=== PATIENT | female | born 1980 | race Caucasian/White ===

== ENCOUNTER → 2021-01-12 08:46 | Outpatient (CLI) | payer OTHER, SELFPAY ==
[2021-01-12 09:45] LABS: Add Manual Diff / Slide Review NO; Basophils Absolute Auto 100 /uL (0-100); Basophils Percent Auto 0.8 % (0-2); Eosinophils Absolute Auto 200 /uL (0-450); Eosinophils Percent Auto 1.7 % (2-4); Hematocrit 38.3 % (36-46); Hemoglobin 13.2 g/dL (12.0-16.0); Lymphocytes Absolute Auto 2100 /uL (1100-4500); Mean Corpuscular HGB Conc 34.5 % (30-36); Mean Corpuscular Hemoglobin 30.2 PG (26-34); Mean Corpuscular Volume 87.7 fL (80-100); Monocytes Absolute Auto 500 /uL (0-900); Monocytes Percent Auto 5.3 % (3-14); Neutrophils Absolute Auto 6800 /uL (1500-7000); Neutrophils Percent Auto 70.2 % (50-75); Platelet Count 258 X10^3/uL (150-400); Red Blood Cell Count 4.37 X10^6/uL (4.0-5.2); Red Cell Distribution Width 12.4 % (11.6-14.8); White Blood Cell Count 9.7 X10^3/uL (4.5-11.0)
[2021-01-12 10:05] LABS: Alanine Aminotransferase 20 IU/L (<35); Albumin 4.4 g/dL (3.5-5.0); Albumin Globulin Ratio 1.3 (1.0-2.8); Alkaline Phosphatase 68 U/L (38-126); Aspartate Aminotransferase 25 IU/L (14-36); BUN Creatinine Ratio 27.8 (6-22); Bilirubin Total 0.7 mg/dL (0.2-1.3); Blood Urea Nitrogen 15 mg/dL (7-17); C-Reactive Protein Quant 1.8 mg/dL (<1.0); Carbon Dioxide 24 mmol/L (22-32); Chloride 106 mmol/L (98-107); Cholesterol 179 mg/dL (140-199); Estimated Glomerular Filt Rate > 60.0 mL/min (>60); Globulin 3.3 g/dL (1.7-4.1); Glucose 98 mg/dL (70-100); HDL Cholesterol 38 mg/dL (40-60); HEMOLYSIS < 15 (0-50); LDL Cholesterol Calculated 108 mg/dL (<100); Potassium 4.3 mmol/L (3.4-5.1); Sodium 139 mmol/L (137-145); Total Protein 7.7 g/dL (6.3-8.2); Triglycerides 166 mg/dL (35-150)
[2021-01-12 10:23] LABS: Free T3, Triiodothyronine Free 2.78 pg/mL (2.77-5.27); Free T4, Direct Thyroxine 1.34 ng/dL (0.78-2.19)
[2021-01-12 10:36] LABS: Thyroid Stimulating Hormone 2.05 uIU/mL (0.47-4.68)
[2021-01-13 07:36] LABS: Thyroid Peroxidase Antibodies 12 IU/mL (0-34)
[2021-01-15 13:36] LABS: Thyroid Stimulating Immunoglob < 0.10 IU/L (0.00-0.55)
== END ==
PROVIDERS: Family Provider Ophthalmology; PCP Anesthesiology Pain Medicine; Referring Provider Naturopath; Visit Provider Naturopath
DX: Z00.00 Encounter for general adult medical examination without abnormal findings (principal); E03.9 Hypothyroidism, unspecified; H20.9 Unspecified iridocyclitis
CPT/HCPCS: 36415; 80053; 80061; 84439; 84443; 84445; 84481; 85025; 86140; 86376

== ENCOUNTER → 2021-01-29 10:46 | Outpatient (CLI) | payer OTHER, SELFPAY ==
--- NOTE | 2021-01-29 | DI.US.S_ITS ---
PROCEDURE: US EXTREMELY NONVASC UPPER RT INDICATIONS: SOFT TISSUE MASS ON COLLARBONE TECHNIQUE: Real-time scanning was performed of the patient directed area of concern involving the right supraclavicular region, with image documentation. COMPARISON: None. FINDINGS: At the patient directed area of palpable concern over the right supraclavicular region, there are no suspicious mass lesions, abnormal fluid collection, or adenopathy. Normal appearance of the skin. IMPRESSION: Unremarkable sonographic evaluation of the right supraclavicular region. No suspicious abnormalities identified. Recommend continued clinical surveillance and repeat imaging as needed. Dictated by: Saul Cr M.D. on 01/29/2021 at 16:21 Approved by: Saul Cr M.D. on 01/29/2021 at 16:22
== END ==
PROVIDERS: Family Provider Ophthalmology; PCP Naturopath; Referring Provider Naturopath; Visit Provider Naturopath
DX: R22.2 Localized swelling, mass and lump, trunk (principal)
CPT/HCPCS: 76882

== ENCOUNTER → 2023-01-24 07:52 | Outpatient (CLI) | payer OTHER, SELFPAY ==
[2023-01-24 09:01] LABS: Add Manual Diff / Slide Review NO; Basophils Absolute Auto 100 /uL (0-100); Eosinophils Absolute Auto 200 /uL (0-450); Eosinophils Percent Auto 1.7 % (2-4); Hematocrit 38.5 % (36-46); Hemoglobin 13.3 g/dL (12.0-16.0); Lymphocytes Absolute Auto 2400 /uL (1100-4500); Lymphocytes Percent Auto 25.6 % (25-40); Mean Corpuscular HGB Conc 34.7 % (30-36); Mean Corpuscular Hemoglobin 30.5 PG (26-34); Monocytes Absolute Auto 500 /uL (0-900); Monocytes Percent Auto 5.5 % (3-14); Neutrophils Absolute Auto 6100 /uL (1500-7000); Neutrophils Percent Auto 66.2 % (50-75); Platelet Count 199 X10^3/uL (150-400); Red Blood Cell Count 4.37 X10^6/uL (4.0-5.2); White Blood Cell Count 9.2 X10^3/uL (4.5-11.0)
[2023-01-24 11:48] LABS: Alanine Aminotransferase 22 IU/L (<35); Albumin 4.4 g/dL (3.5-5.0); Albumin Globulin Ratio 1.3 (1.0-2.8); Alkaline Phosphatase 70 U/L (38-126); Aspartate Aminotransferase 22 IU/L (14-36); BUN Creatinine Ratio 21.1 (6-22); Bilirubin Total 0.7 mg/dL (0.2-1.3); Blood Urea Nitrogen 12 mg/dL (7-17); C-Reactive Protein Quant 1.3 mg/dL (<1.0); Calcium 9.2 mg/dL (8.4-10.2); Carbon Dioxide 23 mmol/L (22-32); Chloride 106 mmol/L (98-107); Cholesterol 172 mg/dL (140-199); Estimated Glomerular Filt Rate > 60 mL/min (>60); Globulin 3.3 g/dL (1.7-4.1); Glucose 93 mg/dL (70-100); HDL Cholesterol 44 mg/dL (40-60); HEMOLYSIS < 15 (0-50); LDL Cholesterol Calculated 105 mg/dL (<100); Sodium 139 mmol/L (137-145); Total Protein 7.7 g/dL (6.3-8.2); Triglycerides 113 mg/dL (35-150)
== END ==
PROVIDERS: Family Provider Ophthalmology; PCP Naturopath; Referring Provider Naturopath; Visit Provider Naturopath
DX: Z00.00 Encounter for general adult medical examination without abnormal findings (principal); R79.82 Elevated C-reactive protein (CRP)
CPT/HCPCS: 36415; 80053; 80061; 85025; 86140

== ENCOUNTER → 2023-09-07 17:35 | Outpatient (ROUT) | payer OTHER, SELFPAY ==
[2023-09-07 17:40] LABS: Appearance Urine UA CLOUDY; Bilirubin Urine UA NEGATIVE (NEGATIVE); Color Urine UA YELLOW; Glucose Urine UA NEGATIVE (Negative); Ketones Urine UA NEGATIVE (NEGATIVE); Leukocyte Esterase Urine UA 1+ (NEGATIVE); Nitrite Urine UA POSITIVE (Negative); Occult Blood Urine UA TRACE-INTACT (Negative); Protein Urine UA NEGATIVE (Negative); Urobilinogen Urine UA 0.2 E.U./dL (0.2)
[2023-09-07 17:53] LABS: Bacteria Urine Many (>30); RBC Urine 0-1/HPF (0-5/HPF); Squamous Epithelial Cell Urine 1-5 /HPF (0-5/HPF); WBC Urine 5-10/HPF (0-5/HPF)
[2023-09-07 17:54] LABS: Culture Indicated Urine Specimen Cultured
== END ==
PROVIDERS: Family Provider Ophthalmology; PCP Naturopath; Visit Provider Naturopath
DX: N30.90 Cystitis, unspecified without hematuria (principal)
CPT/HCPCS: 81001; 87077; 87086; 87147; 87186

== ENCOUNTER → 2024-06-08 15:23 | Outpatient (CLI) | payer OTHER, SELFPAY ==
--- NOTE | 2024-06-08 15:25 | DI.RAD.S_ITS ---
PROCEDURE: XR CHEST 2V INDICATIONS: COUGH TECHNIQUE: 2 views of the chest were acquired. COMPARISON: None. FINDINGS: Surgical changes and devices: None. Lungs and pleura: Lungs are clear. No pleural effusions or pneumothorax. Mediastinum: Mediastinal contours are normal. Heart size is normal. Bones and chest wall: No suspicious bony abnormalities. Soft tissues appear unremarkable. IMPRESSION: No acute cardiopulmonary abnormality is seen. Dictated by: Boby Marcos M.D. on 06/09/2024 at 11:42 Approved by: Boby Marcos M.D. on 06/09/2024 at 11:44
== END ==
PROVIDERS: Family Provider Ophthalmology; PCP Naturopath; Referring Provider Naturopath; Visit Provider Naturopath
DX: R05.9 Cough, unspecified (principal)
CPT/HCPCS: 71046

== ENCOUNTER → 2025-10-02 09:22 | Outpatient (CLI) | payer OTHER, SELFPAY ==
[2025-10-02 09:44] LABS: Add Manual Diff / Slide Review NO; Hematocrit 38.4 % (36-46); Hemoglobin 13.8 g/dL (12.0-16.0); Lymphocytes Absolute Auto 2600 /uL (1100-4500); Mean Corpuscular HGB Conc 35.9 % (30-36); Mean Corpuscular Hemoglobin 33.1 PG (26-34); Mean Corpuscular Volume 92.1 fL (80-100); Platelet Count 218 X10^3/uL (150-400)
[2025-10-02 11:04] LABS: Alanine Aminotransferase 60 IU/L (<35); Albumin 4.7 g/dL (3.5-5.0); Albumin Globulin Ratio 1.5 (1.0-2.8); Alkaline Phosphatase 63 U/L (38-126); Blood Urea Nitrogen 7 mg/dL (7-17); Calcium 9.6 mg/dL (8.4-10.2); Carbon Dioxide 24 mmol/L (22-32); Chloride 105 mmol/L (98-107); Cholesterol 166 mg/dL (140-199); Estimated Glomerular Filt Rate > 60 mL/min (>60); Globulin 3.1 g/dL (1.7-4.1); Glucose 96 mg/dL (70-99); HDL Cholesterol 42 mg/dL (40-60); HEMOLYSIS < 15 (0-50); Potassium 3.8 mmol/L (3.4-5.1); Sodium 139 mmol/L (137-145); Total Protein 7.8 g/dL (6.3-8.2); Triglycerides 187 mg/dL (35-150)
== END ==
PROVIDERS: Family Provider Ophthalmology; PCP Naturopath; Referring Provider Naturopath; Visit Provider Naturopath
DX: Z00.00 Encounter for general adult medical examination without abnormal findings (principal); R79.82 Elevated C-reactive protein (CRP)
CPT/HCPCS: 36415; 80053; 80061; 85025; 86140